=== PATIENT | female | born 1990 | race Caucasian/White ===

== ENCOUNTER 2017-07-28 12:22 | Emergency (ER) | payer OTHER ==
[~2017-07-28] VITALS: Ht 170.2 cm; Wt 51.7 kg
[2017-07-28 12:32] VITALS: BP 124/58; PULSE 76; RESP 16; TEMP 97.9; O2SAT 99
[2017-07-28 13:15] LABS: BILIRUBIN, URINE NEG (NEG); BLOOD, URINE NEG (NEG); GLUCOSE,URINE NEG (NEG); KETONE, URINE NEG (NEG); NITRITE,URINE NEG (NEG); URINE COLOR YELLOW (YELLW/STRAW); URINE LEUKOCYTE ESTERASE NEG (NEG)
--- NOTE | 2017-07-28 13:23 | PD ---
HPI Chief Complaint: GI Complaint Time Seen by Provider: 12:38 Travel History International Travel<30 days: No Contact w/Intl Traveler<30days: No Traveled to known affect area: No History of Present Illness HPI 27 y/o female notes central abdominal pain. She feels a lump in the area. She is scheduled for an outpatient CT through her GI specialist but has not had a chance to do it yet. She states that she has been struggling this for a couple weeks. She states her doctor try to put her on a couple medications. She states that as a child she had a hernia around her bellybutton. She denies other concurrent complaints at this time. She denies specific modifying factors. Quality is sharp. Severity is moderate. She denies any migration of the pain. Patient also notes recent unintentional weight loss. [facility] Past Medical History Anxiety: Yes ?: Not LMP: 07/21/17 Past Surgical History Surgical History: No Previous Surgery Social History Tobacco Use: No Allergies-Medications (Allergen,Severity, Reaction): Coded Allergies: Penicillins (Verified Allergy, Intermediate, Rash, 07/28/17) amoxicillin (Verified Allergy, Intermediate, Rash, 07/28/17) Reported Meds & Prescriptions Reported Meds & Active Scripts Active Reported Pantoprazole (Pantoprazole Sodium) 20 Mg Tab 20 Mg PO DAILY Dicyclomine (Dicyclomine HCl) 10 Mg Cap 10 Mg PO TID Creon (Pancrelipase) 3,000-9,500-15,000 Units Cap 1 Cap PO TIDPC Bupropion HCl 75 Mg Tab 72 Mg PO BID Review of Systems Except as stated in HPI: all other systems reviewed are Neg Physical Exam Narrative GENERAL: 27-year-old female in no apparent distress SKIN: Focused skin assessment warm/dry. HEAD: Atraumatic. Normocephalic. EYES: Pupils equal and round. No scleral icterus. No injection or drainage. ENT: No nasal bleeding or discharge. Mucous membranes pink and moist. NECK: Trachea midline. No JVD. CARDIOVASCULAR: Regular rate and rhythm. RESPIRATORY: No accessory muscle use. Clear to auscultation. Breath sounds equal bilaterally. GASTROINTESTINAL: Abdomen soft, tender just above umbilicus with palpable hernia that is easily reducible, nondistended. No rebound or guarding MUSCULOSKELETAL: No obvious deformities. No clubbing. No cyanosis. No edema. NEUROLOGICAL: Awake and alert. No obvious cranial nerve deficits. Motor grossly within normal limits. Normal speech. PSYCHIATRIC: Appropriate mood and affect; insight and judgment normal. Data Data Last Documented VS Vital Signs Date Time Temp Pulse Resp B/P (MAP) Pulse Ox O2 Delivery O2 Flow Rate FiO2 07/28/17 12:32 97.9 76 16 124/58 (80) 99 Orders Orders Complete Blood Count With Diff (07/28/17 12:48) Comprehensive Metabolic Panel (07/28/17 12:48) Urinalysis - C+S If Indicated (07/28/17 12:48) Lipase (07/28/17 12:48) Ct Abd/Pel W Iv Contrast(Rout) (07/28/17 ) Iv Access Insert/Monitor (07/28/17 12:48) Oximetry (07/28/17 12:48) Ed Urine Pregnancytest Poc (07/28/17 12:48) Iohexol 350 Inj (Omnipaque 350 Inj) (07/28/17 14:30) Ed Discharge Order (07/28/17 14:42) Labs Laboratory Tests Test 07/28/17 12:55 07/28/17 13:20 Urine Collection Type CLEAN CATCH Urine Color YELLOW Urine Turbidity SL CLOUDY Urine pH 6.0 Urine Specific [place] 1.015 Urine Protein NEG mg/dL Urine Glucose (UA) NEG mg/dL Urine Ketones NEG mg/dL Urine Occult Blood NEG Urine Nitrite NEG Urine Bilirubin NEG Urine Urobilinogen 0.2 MG/DL Urine Leukocyte Esterase NEG Urine WBC 0-2 /hpf Urine Squamous Epithelial Cells >8 /hpf Urine Bacteria RARE /hpf Microscopic Urinalysis Comment CULT NOT INDICATED White Blood Count 6.0 TH/MM3 Red Blood Count 4.39 MIL/MM3 Hemoglobin 13.9 GM/DL Hematocrit 41.6 % Mean Corpuscular Volume 94.8 FL Mean Corpuscular Hemoglobin 31.8 PG Mean Corpuscular Hemoglobin Concent 33.5 % Red Cell Distribution Width 12.2 % Platelet Count 259 TH/MM3 Mean Platelet Volume 7.6 FL Neutrophils (%) (Auto) 57.0 % Lymphocytes (%) (Auto) 26.3 % Monocytes (%) (Auto) 9.9 % Eosinophils (%) (Auto) 2.5 % Basophils (%) (Auto) 4.3 % Neutrophils # (Auto) 3.3 TH/MM3 Lymphocytes # (Auto) 1.6 TH/MM3 Monocytes # (Auto) 0.6 TH/MM3 Eosinophils # (Auto) 0.2 TH/MM3 Basophils # (Auto) 0.3 TH/MM3 CBC Comment DIFF FINAL Differential Comment Blood Urea Nitrogen 12 MG/DL Creatinine 0.64 MG/DL Random Glucose 90 MG/DL Total Protein 6.6 GM/DL Albumin 3.6 GM/DL Calcium Level 8.6 MG/DL Alkaline Phosphatase 46 U/L Aspartate Amino Transf (AST/SGOT) 40 U/L Alanine Aminotransferase (ALT/SGPT) 28 U/L Total Bilirubin 0.5 MG/DL Sodium Level 140 MEQ/L Potassium Level 4.2 MEQ/L Chloride Level 106 MEQ/L Carbon Dioxide Level 26.1 MEQ/L Anion Gap 8 MEQ/L Estimat Glomerular Filtration Rate 111 ML/MIN Lipase 219 U/L MDM Medical Decision Making Medical Screen Exam Complete: Yes Emergency Medical Condition: Yes Medical Record Reviewed: Yes (Past history confirmed) Interpretation(s) CBC & BMP Diagram 07/28/17 13:20 Total Protein 6.6, Albumin 3.6, Calcium Level 8.6, Alkaline Phosphatase 46, Aspartate Amino Transf (AST/SGOT) 40 H, Alanine Aminotransferase (ALT/SGPT) 28, Total Bilirubin 0.5 Last 24 hours Impressions Abdomen/Pelvis CT 07/28/17 0000 Signed Impressions: CONCLUSION: 1. Mild constipation. Small amount of free fluid in the pelvis. Appendix appea rs to be normal but is difficult to visualize. Differential Diagnosis Hernia, stone, pancreatitis, mass Narrative Course Will check blood work, urinalysis, CT imaging and reevaluate ed workup no emergent process, on exam appears to be a reducible hernia, stable for outpatient follow up, Patient denies any new complaints and states that they are feeling better. Patient happy with care, all questions answered. Patient knows that follow up is incumbent on them and to return to the emergency room immediately if new or worsening symptoms develop. Patient given strict return precautions, vitals reviewed and are normal, agrees to further workup as an outpatient. Diagnosis Primary Impression: Abdominal pain Qualified Codes: R10.9 - Unspecified abdominal pain Patient Instructions: General Instructions Additional Instructions: return as needed, tylenol as needed, follow with primary this week for recheck and referral Med/Other Pt SpecificInfo: No Change to Meds Disposition: DISCHARGE HOME Condition: Stable Ronel Tracey MD Jul 28, 2017 13:23
[2017-07-28] MEDS ORDERED: CREO3000 PO (13:41)
[2017-07-28] MEDS ORDERED: DICY10CA12 PO (13:41)
[2017-07-28] MEDS ORDERED: BUPR75TA PO (13:41)
[2017-07-28] MEDS ORDERED: PANT20TA2 PO (13:41)
[2017-07-28 13:45] LABS: AUTOMATED NEUTROPHIL # 3.3 TH/MM3 (1.8-7.7); BASOPHIL # 0.3 TH/MM3 (0-0.2); BASOPHIL % 4.3 % (0.0-2.0); EOSINOPHIL # 0.2 TH/MM3 (0-0.4); EOSINOPHIL % 2.5 % (0.0-4.0); HEMATOCRIT 41.6 % (35.0-46.0); HEMOGLOBIN 13.9 GM/DL (11.6-15.3); LYMPH % 26.3 % (9.0-44.0); LYMPHOCYTE # 1.6 TH/MM3 (1.0-4.8); MEAN CELL VOLUME 94.8 FL (80.0-100.0); MEAN CORPUSCULAR HEMOGLOBIN 31.8 PG (27.0-34.0); MEAN CORPUSCULAR HGB CONC 33.5 % (32.0-36.0); MEAN PLATELET VOLUME 7.6 FL (7.0-11.0); MONO % 9.9 % (0.0-8.0); MONOCYTE # 0.6 TH/MM3 (0-0.9); PLATELET COUNT 259 TH/MM3 (150-450); RED BLOOD COUNT 4.39 MIL/MM3 (4.00-5.30); RED CELL DISTRIBUTION WIDTH 12.2 % (11.6-17.2)
[2017-07-28 14:11] LABS: CHLORIDE 106 MEQ/L (98-107); SODIUM (NA) 140 MEQ/L (136-145)
[2017-07-28 14:15] LABS: ALBUMIN 3.6 GM/DL (3.4-5.0); BICARBONATE 26.1 MEQ/L (21.0-32.0); BLOOD UREA NITROGEN 12 MG/DL (7-18); CALCIUM 8.6 MG/DL (8.5-10.1); GLUCOSE,RANDOM 90 MG/DL (74-106)
[2017-07-28 14:16] LABS: BACTERIA, URINE RARE /hpf; SQUAMOUS EPITHELIAL CELL URINE >8 /hpf (0-5); WBC, URINE 0-2 /hpf (0-5)
[2017-07-28 14:18] LABS: ALT (GPT) 28 U/L (10-53); AST (GOT) 40 U/L (15-37); CREATININE 0.64 MG/DL (0.50-1.00); GLOMERULAR FILTRATION RATE 111 ML/MIN (>89)
[2017-07-28 14:19] LABS: TOTAL BILIRUBIN ADULT 0.5 MG/DL (0.2-1.0)
[2017-07-28 14:20] LABS: TOTAL PROTEIN 6.6 GM/DL (6.4-8.2)
[2017-07-28 14:21] LABS: ALKALINE PHOSPHATASE 46 U/L (45-117)
[2017-07-28] MEDS ORDERED: IOHEXOL 350 MG/ML 10 ML VIAL (for RAD DIAG) IVCONTRAST ONE (14:30)
--- NOTE | 2017-07-28 14:38 | RADRPT ---
EXAM DATE: 07/28/2017 2:34 PM EDT AGE/SEX: 27 years / Female INDICATIONS: Jennifer umbilical pain for 2 weeks, worse over past 3 days. Chronic diarrhea. CLINICAL DATA: This is the patient's initial encounter. Patient reports that signs and symptoms have been present for 2 weeks and indicates a pain score of 7/10. MEDICAL/SURGICAL HISTORY: . Umbilical hernia. None. ORAL CONTRAST: No oral contrast ingested. RADIATION DOSE: 4.64 CTDI (mGy) COMPARISON: No prior exams available for comparison. TECHNIQUE: Multiple contiguous axial images were obtained through the abdomen and pelvis following b olus infusion of 90 ml Omnipaque 350 (iohexol) nonionic water-soluble contrast as a single exam dos e. No oral contrast ingested. Using automated exposure control and adjustment of the mA and/or kV ac cording to patient size, the radiation dose was kept as low as reasonably achievable to obtain optima l diagnostic quality images. FINDINGS: Lung bases are clear. No acute findings in the liver, spleen, adrenals, kidneys or pancreas. No calci fied gallstones or biliary ductal dilatation. Mild constipation. Small amount of free fluid in the pelvis. Appendix appears to be normal. CONCLUSION: 1. Mild constipation. Small amount of free fluid in the pelvis. Appendix appears to be normal but is difficult to visualize. Electronically signed by: Uri Wright MD 07/28/2017 2:37 PM EDT
== END 2017-07-28 15:01 | disposition home or self-care (01) ==
LOC: PHED 12:22
DX: K59.00 Constipation, unspecified (principal); F41.9 Anxiety disorder, unspecified; Z79.899 Other long term (current) drug therapy; Z88.0 Allergy status to penicillin
CPT/HCPCS: 74177; 80053; 81001; 83690; 84703; 85025; 99284; Q9967